=== PATIENT | male | born 2000 | race Asian ===

== ENCOUNTER 2020-03-12 00:14 | Emergency (ER) | payer BC ==
[~2020-03-12] VITALS: Ht 172.7 cm; Wt 117.9 kg
[2020-03-12 01:22] LABS: PLATELET COUNT 255 K/uL (142-355); POTASSIUM 3.7 mmol/L (3.6-5.2); SODIUM 140 mmol/L (136-145)
[2020-03-12 02:24] VITALS: BP 146/71; TEMP 98.3
== END 2020-03-12 02:24 | disposition home or self-care (01) ==
LOC: ED 00:14
PROVIDERS: Family Medicine
DX: R00.2 Palpitations (principal); F41.8 Other specified anxiety disorders
CPT/HCPCS: 80053; 80307; 81000; 82550; 84484; 85027; 87502; 87651; 93005; 99284

== ENCOUNTER 2022-05-13 10:10 | Emergency (ER) | payer OTHER ==
[~2022-05-13] VITALS: Ht 172.7 cm; Wt 115.7 kg
[2022-05-13 11:40] VITALS: BP 133/83; TEMP 98.8
== END 2022-05-13 11:44 | disposition home or self-care (01) ==
LOC: ED 10:10
DX: S39.012A Strain of muscle, fascia and tendon of lower back, initial encounter (principal); V49.40XA Driver injured in collision with unspecified motor vehicles in traffic accident, initial encounter; Y92.89 Other specified places as the place of occurrence of the external cause
CPT/HCPCS: 96372; 99283; J1885

== ENCOUNTER 2022-06-10 04:25 | Emergency (ER) | payer OTHER ==
[~2022-06-10] VITALS: Ht 172.7 cm; Wt 115.7 kg
[2022-06-10 04:30] VITALS: TEMP 99.1
[2022-06-10 05:44] LABS: PLATELET COUNT 267 K/uL (142-355)
[2022-06-10 05:48] LABS: POTASSIUM 3.7 mmol/L (3.6-5.2)
[2022-06-10 07:57] VITALS: BP 131/81
== END 2022-06-10 07:58 | disposition home or self-care (01) ==
LOC: ED 04:25
PROVIDERS: Family Medicine
DX: K52.89 Other specified noninfective gastroenteritis and colitis (principal); R10.13 Epigastric pain; Z20.822 Contact with and (suspected) exposure to COVID-19
CPT/HCPCS: 80053; 82150; 83690; 85027; 87635; 96374; 96375; 99284; J1885; J2405; U0003